=== PATIENT | female | born 1950 | race Caucasian/White ===

== ENCOUNTER 2019-04-07 11:34 | Emergency (ER) | payer MEDICARE ==
[~2019-04-07] VITALS: Ht 162.6 cm; Wt 51.3 kg
--- NOTE | 2019-04-07 11:34 | NUR ---
PT BIBA BLS TO ER BED 02
[2019-04-07 11:37] VITALS: BP 146/77
--- NOTE | 2019-04-07 11:39 | NUR ---
PT BIBA C/O PALPITATIONS. PT REPORTS WALKING AROUND MALL WHEN SHE FELT DIZZY, NEARLY PASSING OUT, SAT DOWN AND FELT HEART PALPITATIONS. DENIES CP, SOB, N/V. PER EMS PT APEARD CLAMMY AND DIAPHORETIC UPON ARRIVING ON SCENE, BUT AFTER GETTING PT INTO AMBULANCE NO SIGNS OR SYMPTOMS OF PALPITAIONS. 20 G IV INSERTED BY EMS IN FIELD. VSS. ER MD TO SEE PT. MEDHX:HYPOTHYROIDISM, LBB
--- NOTE | 2019-04-07 11:53 | NUR ---
LAB AT BEDSIDE
[2019-04-07 12:02] LABS: BASOPHILS % (AUTO) 0.9 % (0.0-2.0); EOSINOPHILS # (AUTO) 0.2 K/uL (0-0.4); EOSINOPHILS % (AUTO) 3.7 % (0.0-4.0); HEMATOCRIT 37.2 % (36-48); HEMOGLOBIN 12.4 g/dL (12.0-16.0); LYMPHOCYTES # (AUTO) 1.8 K/uL (2.5-16.5); LYMPHOCYTES % (AUTO) 37.8 % (20.5-51.1); MEAN CORPUSCULAR HEMOGLOBIN 29 pg (27-31); MEAN CORPUSCULAR HGB CONC 33 g/dL (33-37); MEAN CORPUSCULAR VOLUME 88.6 fL (80-94); MONOCYTES # (AUTO) 0.4 K/uL (0.8-1.0); MONOCYTES % (AUTO) 7.6 % (1.7-9.3); NEUTROPHILS # (AUTO) 2.4 K/uL (1.8-7.7); PLATELET COUNT (AUTO) 288 K/uL (140-450); RED CELL DISTRIBUTION WIDTH 14.6 % (11.6-13.7); WHITE BLOOD COUNT (AUTO) 4.9 K/uL (4.8-10.8)
--- NOTE | 2019-04-07 12:07 | NUR ---
Patient ambulated to restroom with steady gait unassisted.
[2019-04-07 12:16] LABS: ANION GAP 11.8 (8-16); CARBON DIOXIDE 29.1 mmol/L (21-32); CREATININE 0.6 mg/dL (0.6-1.3); POTASSIUM 3.9 mmol/L (3.5-5.1)
[2019-04-07 12:21] LABS: APPEARANCE,URINE CLEAR (CLEAR); BILIRUBIN,URINE NEGATIVE (NEGATIVE); BLOOD, URINE TRACE-L (NEGATIVE); COLOR,URINE YELLOW (YELLOW); LEUKOCYTE ESTERASE ,URINE 1+ (NEGATIVE); NITRITE, URINE NEGATIVE (NEGATIVE); UGLUCOSE NEGATIVE (NEGATIVE)
[2019-04-07 12:22] LABS: ALBUMIN 3.8 g/dL (3.4-5.0); TOTAL BILIRUBIN 0.5 mg/dL (0.0-1.0)
[2019-04-07 12:30] LABS: WBC,URINE 0-5 /HPF (0-5)
[2019-04-07 13:07] LABS: FREE T4 (FREE THYROXINE) 1.04 ng/dL (0.76-1.46); THYROID STIMULATING HORMONE 3.05 uIU/mL (0.34-3.74)
[2019-04-07 13:35] VITALS: BP 123/69
--- NOTE | 2019-04-07 13:35 | NUR ---
Patient discharged with v/s stable. Written and verbal after care instructions given and explained. Patient verbalized understanding. Ambulatory with steady gait. All questions addressed prior to discharge. Advised to follow up with PMD, PT GIVEN COPIES OF LAB WORK, EKG, AND CHEST X-RAY.
== END 2019-04-07 13:35 | disposition home or self-care (01) ==
LOC: MED 11:34
DX: R00.2 Palpitations (principal); I10 Essential (primary) hypertension; E78.5 Hyperlipidemia, unspecified; E03.9 Hypothyroidism, unspecified; Z98.890 Other specified postprocedural states
CPT/HCPCS: 36415; 71045; 80053; 81001; 83605; 83880; 84439; 84443; 84484; 85025; 87040; 87086; 93005; 99284